=== PATIENT | male | born 1995 | race Caucasian/White ===

== ENCOUNTER 2022-06-16 11:55 | Emergency (ER) | payer MEDICAID, OTHER | END 2022-06-16 17:39 | disposition home or self-care (01) | LOC: JP.ED 11:55 | DX: S06.0X1A Concussion with loss of consciousness of 30 minutes or less, initial encounter (principal); S16.1XXA Strain of muscle, fascia and tendon at neck level, initial encounter; R55 Syncope and collapse; F17.210 Nicotine dependence, cigarettes, uncomplicated; V69.9XXA Occupant (driver) (passenger) of heavy transport vehicle injured in unspecified traffic accident, initial encounter; Y92.410 Unspecified street and highway as the place of occurrence of the external cause | CPT/HCPCS: 36415; 70450; 70450-26; 71045; 71045-26; 72125; 72125-26; 80048; 85025; 99284 ==